=== PATIENT | male | born 1965 | race Caucasian/White ===

== ENCOUNTER 2020-11-01 08:45 | Emergency (ER) | payer MEDICAID ==
[2020-11-01] MEDS ORDERED: Ibuprofen 600 MG Tab PO ONE (08:51)
[2020-11-01] MEDS ORDERED: Diphtheria,Pertussis(Acell),Tetanus Vaccine 0.5 ML Syringe IM ONE (08:52)
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
== END 2020-11-01 09:59 | disposition home or self-care (01) ==
LOC: MW.ED 08:45
DX: S01.01XA Laceration without foreign body of scalp, initial encounter (principal); S93.491A Sprain of other ligament of right ankle, initial encounter; I10 Essential (primary) hypertension; Z23 Encounter for immunization; Y04.2XXA Assault by strike against or bumped into by another person, initial encounter
CPT/HCPCS: 12002; 70450; 72125; 90471; 90715; 99283; A9270

== ENCOUNTER 2020-11-13 08:37 | Emergency (ER) | payer MEDICAID | END 2020-11-13 08:45 | disposition home or self-care (01) | LOC: MW.ED 08:37 | DX: S01.01XD Laceration without foreign body of scalp, subsequent encounter (principal); X58.XXXD Exposure to other specified factors, subsequent encounter | CPT/HCPCS: 99281 ==

== ENCOUNTER 2021-12-29 10:45 | Emergency (ER) | payer SELFPAY ==
[2021-12-29] MEDS ORDERED: Diazepam 5 MG Tab PO ONE (11:28)
[2021-12-29] MEDS ORDERED: Ketorolac 60 MG/2 ML SDV IM ONE (11:28)
[2021-12-29] MEDS ORDERED: Orphenadrine 60 MG/2 ML Inj IM ONE (11:28)
== END 2021-12-29 14:14 ==
LOC: MW.ED 10:45
DX: M54.50 Low back pain, unspecified (principal)
CPT/HCPCS: 72131; 96372; 99283; A9270; J1885; J2360